=== PATIENT | male | born 1955 ===

== ENCOUNTER 2022-11-30 04:29 | Day surgery (SDC) | payer OTHER ==
[2022-11-26 17:55] VITALS: BMI 32.6
[2022-11-30] MEDS ORDERED: ACETAMINOPHEN 1000 MG/100 ML BAG IVPB ONE (14:51)
[2022-11-30] MEDS ORDERED: DEXTROSE 5%-0.45% SALINE 1,000 ML IV SCH (15:00)
[2022-11-30] MEDS ORDERED: PROPOFOL 20 ML ONE ×2 (15:25→16:21)
[2022-11-30] MEDS ORDERED: MIDAZOLAM HCL 2 MG/2 ML SINGLE DOSE VIAL ONE (15:26)
[2022-11-30] MEDS ORDERED: DEXAMETHASONE SOD PHOSPHATE 4 MG/1 ML VIAL ONE (15:47)
[2022-11-30] MEDS ORDERED: ONDANSETRON 4 MG/2 ML VIAL ONE (15:47)
[2022-11-30] MEDS ORDERED: oxyCODONE HCL 5 MG TABLET PO PRN (16:46)
[2022-11-30] MEDS ORDERED: LACTATED RINGERS SOLUTION 1,000 ML IV SCH (17:00)
[2022-11-30] MEDS ORDERED: ACETAMINOPHEN INJECTION 100 ML IVPB ONE (17:20)
[2022-11-30 19:28] VITALS: RESP 18
[2022-11-30 20:14] VITALS: BP 162/85; PULSE 79; TEMP 98.2
== END 2022-11-30 20:05 | disposition home or self-care (01) ==
LOC: JASU-SURG 04:29
PROVIDERS: ATTEND Urology
PROC: 0V507ZZ Destruction of Prostate, Via Natural or Artificial Opening (ICD-10-PCS; principal; 2022-11-30 15:30)
DX: N40.1 Benign prostatic hyperplasia with lower urinary tract symptoms (principal); R33.8 Other retention of urine
CPT/HCPCS: 94760

== ENCOUNTER 2022-12-01 15:20 | Emergency (ER) | payer OTHER ==
[2022-12-01 15:35] VITALS: TEMP 97.9; BMI 32.6
[2022-12-01] MEDS ORDERED: morphine CARPU-JECT 4 MG/1 ML DISP.SYRIN IVPUSH ONE (16:05)
[2022-12-01] MEDS ORDERED: morphine SULFATE 4 MG/ML VIAL ONE (16:07)
[2022-12-01] MEDS ORDERED: LIDOCAINE HCL 2% JELLY 10 ML CARTRIDGE ONE (16:15)
[2022-12-01] MEDS ORDERED: CEFTRIAXONE 1,000 MG in DEXTROSE 5%-WATER - 50 ML IVPB ONE (16:38)
[2022-12-01] MEDS ORDERED: HYDROmorphone HCl 2 MG/ML VIAL IVPUSH ONE ×2 (16:55→17:38)
[2022-12-01 17:02] LABS: INR 1.14 (0.83-1.09)
[2022-12-01] MEDS ORDERED: CEFTRIAXONE 1 GM/50 ML BAG ONE (17:04)
[2022-12-01] MEDS ORDERED: HYDROmorphone HCl 2 MG/ML VIAL ONE ×2 (17:04→17:38)
[2022-12-01 17:05] LABS: ACTIVATED PTT 28.1 SECONDS (25.2-36.5)
[2022-12-01 17:08] LABS: PROTHROMBIN TIME (PATIENT) 13.2 SEC (9.7-13.0)
[2022-12-01 17:26] LABS: BASO % 0.7 % (0-2.0); EOS % 0.9 % (0-4.5); HEMATOCRIT 45.3 % (35.4-49); HEMOGLOBIN 15.7 GM/dL (11.7-16.9); LYMPH % 10.5 % (8-40); MCH 31.2 pg (25.7-33.7); MCHC 34.6 g/dl (32.0-35.9); MEAN CELL VOLUME 90.1 fl (80-96); MEAN PLT VOLUME 9.1 fl (7.5-11.1); MONO % 8.9 % (3.8-10.2); PLATELET COUNT 207 10^3/uL (134-434); RBC 5.03 M/mm3 (4.00-5.60); WHITE BLOOD COUNT 15.7 K/mm3 (4.0-10.0)
[2022-12-01 19:32] LABS: POTASSIUM 3.7 mmol/L (3.5-5.1)
[2022-12-01 19:34] LABS: ALBUMIN 3.6 g/dl (3.4-5.0); BLOOD UREA NITROGEN 14.6 mg/dL (7-18); CALCIUM 8.8 mg/dL (8.5-10.1)
[2022-12-01 19:37] LABS: CREATININE 1.1 mg/dL (0.55-1.3)
[2022-12-01 19:39] LABS: BILIRUBIN,TOTAL 1.5 mg/dL (0.2-1); TOT PROT 6.4 g/dl (6.4-8.2)
[2022-12-01 19:53] LABS: URINE APPEARANCE TURBID; URINE COLOR RED
[2022-12-01 19:57] LABS: URINE BILIRUBIN NEGATIVE (NEGATIVE); URINE GLUCOSE (UA) TRACE (NEGATIVE)
[2022-12-01 19:58] LABS: URINE PROTEIN 3+ (NEGATIVE); URINE RBC 51209.5 /uL (0-23.9); URINE UROBILINOGEN 0.2 mg/dL (0.2-1.0); URINE WBC 253 /uL (0-25.8)
[2022-12-01 19:59] LABS: EPI CELLS 57.5 /uL (0-25.1); HYALINE CASTS 13.42 /uL (0-3.1)
[2022-12-01 20:56] VITALS: BP 148/89
[2022-12-01 20:57] VITALS: PULSE 74; RESP 16
== END 2022-12-01 22:05 | disposition home or self-care (01) ==
LOC: JER 15:20
PROC: 3E03329 Introduction of Other Anti-infective into Peripheral Vein, Percutaneous Approach (ICD-10-PCS; principal; 2022-12-01)
PROC: 3E033GC Introduction of Other Therapeutic Substance into Peripheral Vein, Percutaneous Approach (ICD-10-PCS; 2022-12-01)
PROC: 3E033GC Introduction of Other Therapeutic Substance into Peripheral Vein, Percutaneous Approach (ICD-10-PCS; 2022-12-01)
PROC: 3E033GC Introduction of Other Therapeutic Substance into Peripheral Vein, Percutaneous Approach (ICD-10-PCS; 2022-12-01)
PROC: 0T9B70Z Drainage of Bladder with Drainage Device, Via Natural or Artificial Opening (ICD-10-PCS; 2022-12-01)
DX: R10.30 Lower abdominal pain, unspecified (principal); R33.9 Retention of urine, unspecified; R31.9 Hematuria, unspecified; Z46.6 Encounter for fitting and adjustment of urinary device; Z20.822 Contact with and (suspected) exposure to COVID-19
CPT/HCPCS: 0241U-QW; 36415; 80053; 81003; 85025; 85610; 85730; 87086; 99285-25